=== PATIENT | female | born 1980 | race Two or more races ===

== ENCOUNTER 2018-02-02 11:59 | Emergency (ER) | payer MEDICAID ==
[~2018-02-02] VITALS: Ht 157.5 cm; Wt 58.1 kg
--- NOTE | 2018-02-02 12:10 | NUR ---
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 8 WEEKS. NO BLEEDING NOTED. PATIENT IS AFEBRILE. VSS
[2018-02-02 13:09] LABS: BASOPHILS % (AUTO) 0.4 % (0.0-2.0); HEMATOCRIT 38 % (33-45); HEMOGLOBIN 13.3 g/dL (11.5-14.8); LYMPHOCYTES # (AUTO) 1.8 /CMM (0.8-4.8); LYMPHOCYTES % (AUTO) 21.8 % (20.0-44.0); MEAN CORPUSCULAR HGB CONC 35 g/dl (31.0-36.0); MEAN CORPUSCULAR VOLUME 91 fL (82-100); MONOCYTES # (AUTO) 0.7 /CMM (0.1-1.30); MONOCYTES % (AUTO) 8.4 % (2.0-12.0); NEUTROPHILS # (AUTO) 5.6 /CMM (1.8-8.9); NEUTROPHILS % (AUTO) 67.4 % (43.0-81.0); PLATELET COUNT (AUTO) 247 /CMM (150-450); RDW COEFFICIENT OF VARIATION 12.8 (11.5-15.0); WHITE BLOOD COUNT (AUTO) 8.4 K/uL (4.3-11.0)
[2018-02-02 13:28] LABS: INR 0.9 (0.87-1.13)
--- NOTE | 2018-02-02 13:48 | NUR ---
MANAGER OF PRODUCT AT BEDSIDE
[2018-02-02 16:17] LABS: APPEARANCE,URINE Clear (CLEAR); BILIRUBIN,URINE Negative (NEGATIVE); BLOOD, URINE Negative Ery/uL (NEGATIVE); COLOR,URINE Yellow (YELLOW); KETONES,URINE 15 (NEGATIVE); LEUKOCYTE ESTERASE ,URINE Negative (NEGATIVE); NITRITE, URINE Negative (NEGATIVE); PROTEIN,URINE Negative (NEGATIVE); UGLUCOSE Negative (NEGATIVE); UROBILINOGEN,URINE 0.2 EU/dL (0.2)
[2018-02-02 16:31] LABS: RBC,URINE 0-2 /HPF (0-2); WBC,URINE 0-2 /HPF (0-3)
[2018-02-02 16:32] LABS: BACTERIA,URINE Few /HPF (None Seen); SQUAMOUS EPITHELIAL CELL,UR Many /HPF (None Seen)
--- NOTE | 2018-02-02 17:03 | NUR ---
Patient discharged to home in stable condition. Written and verbal after care instructions given. Patient verbalizes understanding of instruction.
[2018-02-02 17:04] VITALS: BP 120/73
--- NOTE | 2018-02-02 17:08 | NUR ---
PATIENT LEFT PRIOR GETTING CD CANNOT WAIT
== END 2018-02-02 17:08 | disposition home or self-care (01) ==
LOC: ER 12:01
DX: O02.1 Missed abortion (principal); Z3A.08 8 weeks gestation of pregnancy
CPT/HCPCS: 36415; 76856-TC; 81000-TC; 84702-TC; 85025-TC; 85730-TC; 86850-TC; A4606; Z7610

== ENCOUNTER 2021-07-06 13:40 | Emergency (ER) | payer MEDICAID ==
[~2021-07-06] VITALS: Ht 170.2 cm; Wt 54.4 kg
[2021-07-06] MEDS ORDERED: IV NS 0.9% 1,000 ML BAG IV ONE (14:00)
--- NOTE | 2021-07-06 14:18 | NUR ---
Patient came to ER bibself c/o right lower flank pain and headache for the past 2x days. Patient is alert and oriented x4. Patient is ambulatory with a steady gait. Patient is breathign evenly and unlabored on room air. connected to the monitor.
--- NOTE | 2021-07-06 14:19 | NUR ---
Patient's blood is collected and sent to the lab.
[2021-07-06 14:26] LABS: BASOPHILS # (AUTO) 0.1 K/uL (0.0-0.2); EOSINOPHILS % (AUTO) 0.5 % (0.0-6.0); HEMATOCRIT 44 % (33-45); HEMOGLOBIN 14.6 g/dL (11.5-14.8); LYMPHOCYTES # (AUTO) 1.2 K/uL (0.8-4.8); LYMPHOCYTES % (AUTO) 10.2 % (20.0-44.0); MEAN CORPUSCULAR HGB CONC 34 g/dl (31.0-36.0); MEAN CORPUSCULAR VOLUME 96 fL (82-100); MONOCYTES % (AUTO) 8.6 % (2.0-12.0); NEUTROPHILS # (AUTO) 9.7 K/uL (1.8-8.9); NEUTROPHILS % (AUTO) 79.7 % (43.0-81.0); PLATELET COUNT (AUTO) 264 K/uL (150-450); RED BLOOD CELL COUNT(AUTO) 4.55 MIL/uL (4.0-5.2); WHITE BLOOD COUNT (AUTO) 12.2 K/uL (4.3-11.0)
[2021-07-06 14:35] LABS: CALCIUM, SERUM 8.8 mg/dL (8.5-10.1); CREATININE 0.8 mg/dL (0.6-1.3); POTASSIUM 3.8 mmol/L (3.5-5.1)
[2021-07-06 15:55] LABS: BILIRUBIN,URINE NEGATIVE (NEGATIVE); COLOR,URINE YELLOW (YELLOW); LEUKOCYTE ESTERASE ,URINE TRACE (NEGATIVE); NITRITE, URINE NEGATIVE (NEGATIVE); PH,URINE 6.5 (5.0-8.0); PROTEIN,URINE NEGATIVE (NEGATIVE); UGLUCOSE NEGATIVE (NEGATIVE); UROBILINOGEN,URINE 0.2 EU/dL (0.2)
[2021-07-06] MEDS ORDERED: ACETAMINOPHEN 325 MG TABLET PO ONE (16:00)
[2021-07-06] MEDS ORDERED: ACETAMINOPHEN 325 MG TABLET ONE (16:02)
[2021-07-06 16:07] LABS: BACTERIA,URINE 1+ /HPF (None Seen); RBC,URINE 0-2 /HPF (0-2); SQUAMOUS EPITHELIAL CELL,UR Few /HPF (None Seen)
[2021-07-06] MEDS ORDERED: CEPH500C2 PO (16:50)
[2021-07-06] MEDS ORDERED: IBUP-1955 PO (16:50)
[2021-07-06] MEDS ORDERED: CEFTRIAXONE 1 G in IV D5W 50 ML IV ONE (17:00)
[2021-07-06] MEDS ORDERED: CEFTRIAXONE 1GM BAG (ER ONLY) 50 ML IV ONE (17:13)
--- NOTE | 2021-07-06 17:22 | NUR ---
COVID SWAB DONE AND SENT TO THE LAB
--- NOTE | 2021-07-06 17:49 | NUR ---
IV removed. Catheter intact and site benign. Pressure and 4x4 applied to site. No bleeding noted.Patient discharged to home in stable condition. Written and verbal after care instructions given. Patient verbalizes understanding of instruction.
[2021-07-06 17:50] VITALS: BP 126/75
== END 2021-07-06 17:51 | disposition home or self-care (01) ==
LOC: ER 13:45
DX: N39.0 Urinary tract infection, site not specified (principal); R51.9 Headache, unspecified; R50.9 Fever, unspecified; Z20.822 Contact with and (suspected) exposure to COVID-19; M54.89 Other dorsalgia
CPT/HCPCS: 36415; 76705; 80048; 81001; 84703; 85025; 96361; 96365; 99284; C9803; J0696; J7030; U0003